=== PATIENT | male | born 1965 | race American Indian/Alaskan Native ===

== ENCOUNTER 2018-06-26 15:28 | Emergency (ER) | payer OTHER ==
[2018-06-26 15:44] VITALS: RESP 18; TEMP 98.3
--- NOTE | 2018-06-26 16:12 | ED PDOC ---
Arrival/HPI - General Chief Complaint: High Blood Pressure Time Seen by Provider: 06/26/18 15:29 Historian: Patient - History of Present Illness Narrative History of Present Illness (Text): 06/26/18 16:11 Patient is a 52 year old with a past medical history of hypertension presenting to the emergency room with a complaint of elevated blood pressure and headache. Patient was diagnosed with hypertension one year ago and was started on Bystolic 10mg PO daily. He sought treatment at that time because he was having mild headaches at that time. He stopped taking his BP medications 3 months ago on his own and recently started experiencing similar headaches again this week. He checked his BP at home last night with a max BP of 150s/120s. He had some left over medications and took it once last night and again again this morning. All of his symptoms have resolved, but he decided to come get checked today because he was driving past the hospital. Denies fevers, chills, nausea, vomiting, diarrhea, constipation, chest pain, shortness of breath, abdominal pain, vision changes, weakness, numbness or tingling. PMD: Has one but does not remember name. Time/Duration: < week Symptom Onset: Gradual Symptom Course: Intermittent Severity Level: Mild Past Medical History - Provider Review Nursing Documentation Reviewed: Yes - Cardiac Hx Hypertension: Yes - Pulmonary Hx Respiratory Disorders: No - Neurological Hx Neurological Disorder: No - HEENT Hx HEENT Disorder: No - Renal Hx Renal Disorder: No - Endocrine/Metabolic Hx Endocrine Disorders: No - Hematological/Oncological Hx Blood Disorders: No - Integumentary Hx Dermatological Disorder: No - Musculoskeletal/Rheumatological Hx Musculoskeletal Disorders: No - Gastrointestinal Hx Gastrointestinal Disorders: No - Genitourinary/Gynecological Hx Genitourinary Disorders: No - Psychiatric Hx Psychophysiologic Disorder: No Hx Substance Use: No Family/Social History - Physician Review Nursing Documentation Reviewed: Yes Family/Social History: Unknown Family HX Smoking Status: Never Smoked Hx Alcohol Use: Yes Frequency of alcohol use: Socially Hx Substance Use: No Allergies/Home Meds Allergies/Adverse Reactions: Allergies No Known Allergies Allergy (Verified 06/26/18 15:44) Home Medications: Home Meds Medication Instructions Recorded Confirmed Nebivolol [Bystolic] 10 mg PO DAILY 06/26/18 06/26/18 Review of Systems - Physician Review All systems were reviewed & negative as marked: Yes - Review of Systems Constitutional: Normal. absent: Fatigue, Fevers Eyes: Normal. absent: Vision Changes ENT: Normal. absent: Sore Throat, Rhinorrhea Respiratory: Normal. absent: SOB, Wheezing Cardiovascular: Normal. absent: Chest Pain, Palpitations Gastrointestinal: Normal. absent: Abdominal Pain, Constipation, Diarrhea, Nausea, Vomiting Musculoskeletal: Normal Skin: Normal. absent: Rash Neurological: Headache (resolved since taking his medications.). absent: Dizziness Endocrine: Normal. absent: Diaphoresis Hemo/Lymphatic: Normal Psychiatric: Normal. absent: Anxiety Physical Exam Vital Signs Reviewed: Yes Vital Signs Temp Pulse Resp BP Pulse Ox 06/26/18 15:56 71 18 135/69 95 06/26/18 15:41 98.3 F 69 18 152/90 H 97 Temperature: Afebrile Blood Pressure: Hypertensive Pulse: Regular Respiratory Rate: Normal Appearance: Positive for: Well-Appearing, Non-Toxic, Comfortable Pain Distress: None Mental Status: Positive for: Alert and Oriented X 3 - Systems Exam Head: Present: Atraumatic, Normocephalic Extroacular Muscles: Present: EOMI Conjunctiva: Present: Normal Mouth: Present: Moist Mucous Membranes Nose (External): Present: Atraumatic Nose (Internal): Present: No Active Bleeding Neck: Present: Normal Range of Motion. No: Meningeal Signs, JVD, Lymphadenopathy Respiratory/Chest: Present: Clear to Auscultation, Good Air Exchange. No: Respiratory Distress, Accessory Muscle Use Cardiovascular: Present: Regular Rate and Rhythm, Normal S1, S2. No: Murmurs Abdomen: No: Tenderness, Distention, Peritoneal Signs Upper Extremity: Present: Normal Inspection, NORMAL PULSES. No: Cyanosis, Edema Lower Extremity: Present: Normal Inspection. No: Edema, CALF TENDERNESS Neurological: Present: GCS=15, Speech Normal, Motor Func Grossly Intact, Gait Normal Skin: Present: Warm, Dry, Normal Color. No: Rashes Psychiatric: Present: Alert, Oriented x 3, Normal Insight, Normal Concentration Medical Decision Making ED Course and Treatment: 06/26/18 16:45 Patient is a 52 year old with a past medical history of hypertension presenting to the emergency room with a complaint of elevated blood pressure and headache. All of patient's symptoms have resolved since restarting his blood pressure medications. BP rechecked in room - 133/65 No further testing or imaging indicated at this time as all of patient's symptoms have resolved with restarting his home BP medications. BP well controlled at this time. Patient counseled on the importance of blood pressure control and taking his medications as directed. Patient reports having only a small amount of his blood pressure medication, Bystolic 10mg (patient has bottle in ED with him), at home. Prescription given and patient instructed to follow up with his primary care physician for further management. If patient has return of symptoms or new or worsening symptoms, he is to follow up in the nearest emergency room. Disposition/Present on Arrival - Present on Arrival Any Indicators Present on Arrival: No History of DVT/PE: No History of Uncontrolled Diabetes: No Urinary Catheter: No History of Decub. Ulcer: No History Surgical Site Infection Following: None - Disposition Have Diagnosis and Disposition been Completed?: Yes Diagnosis: Hypertension Disposition: HOME/ ROUTINE Disposition Time: 16:12 Patient Plan: Discharge Condition: GOOD Discharge Instructions (ExitCare): High Blood Pressure (DC) Additional Instructions: CHARLI MCCLELLAND, thank you for letting us take care of you today. Your provider was Dion Tate DO and you were treated for HIGH BLOOD PRESSURE. The emergency medical care you received today was directed at your acute symptoms. If you were prescribed any medication, please fill it and take as directed. It may take several days for your symptoms to resolve. Return to the Emergency Department if your symptoms worsen, do not improve, or if you have any other problems. Please contact your doctor or call one of the physicians/clinics you have been referred to that are listed on the Patient Visit Information form that is included in your discharge packet. Bring any paperwork you were given at discharge with you along with any medications you are taking to your follow up visit. Our treatment cannot replace ongoing medical care by a primary care provider outside of the emergency department. Thank you for allowing the [facility] team to be part of your care today. If you had an X-Ray or CT scan: A Radiologist will review the ED reading if any change in treatment is needed we will contact you. If you had a blood, urine, or wound culture: It will take several days for the results, if any change in treatment is needed we will contact you. If you had an STI test: It will take 48 hours for the results. Please call after 1 week if you have not heard back. Prescriptions: Nebivolol [Bystolic] 10 mg PO DAILY #30 tab Forms: [facility] ([place])
[2018-06-26 16:47] VITALS: BP 133/65; PULSE 68; O2SAT 96
== END 2018-06-26 17:41 | disposition home or self-care (01) ==
LOC: ED 15:28
DX: I10 Essential (primary) hypertension (principal)